=== PATIENT | male | born 1980 | race Caucasian/White ===

== ENCOUNTER 2019-04-27 07:45 | Emergency (ER) | payer OTHER ==
[2019-04-27 07:57] VITALS: BP 150/94
--- NOTE | 2019-04-27 11:17 | ER Document Report ---
HPI - HPI Time Seen by Provider: 04/27/19 10:46 Pain Level: 0 Notes: Patient is a 38-year-old male no significant past medical history who presents to discuss possible rabies vaccination series. Patient was bit by a dog minimally to his left index finger and right forearm this past Thursday. He was placed on Augmentin on Thursday. Patient states that his puncture wounds have been healing well and it was only very minor to begin with. He had been reviewing previous information and presents for discussion and possible vaccination series. Patient states that he was walking his small dog on [facility] when he saw a black lab mix walking in the distance. He picked up a small dog and served walking the other way. before he knew it, the dog was trying to attack his other dog. Patient states that the dog did have a collar and a leash. He did not notice any other abnormal behavior. He has not been able to find the systems programmer analyst or the dog since then and is not sure of its vaccination status. He has no other concerns or complaints. He does not have any pain or discomfort. Denies drug allergies. Tetanus is reported to up-to-date within the last 5 years. Denies any headache, fever, neck pain, URI, sore throat, chest pain, palpitations, syncope, cough, shortness of breath, wheeze, dyspnea, abdominal pain, nausea/vomiting/diarrhea, urinary retention, dysuria, hematuria, loss of control of bowel or bladder, numbness/tingling, muscle paralysis/weakness, or rash. - ROS Systems Reviewed and Negative: Yes All other systems reviewed and negative - CONSTITUTIONAL Constitutional: DENIES: Fever, Chills - EENT EENT: DENIES: Sore Throat, Ear Pain, Eye problems - NEURO Neurology: DENIES: Headache - CARDIOVASCULAR Cardiovascular: DENIES: Chest pain - RESPIRATORY Respiratory: DENIES: Trouble Breathing, Coughing - GASTROINTESTINAL Gastrointestinal: DENIES: Abdominal Pain, Black / Bloody Stools - URINARY Urinary: DENIES: Dysuria, Urgency, Frequency - REPRODUCTIVE Reproductive: DENIES: : - MUSCULOSKELETAL Musculoskeletal: DENIES: Extremity pain Past Medical History - Social History Smoking Status: Never Smoker Chew tobacco use (# tins/day): No Frequency of alcohol use: Occasional Drug Abuse: None Family History: Reviewed & Not Pertinent Patient has suicidal ideation: No Patient has homicidal ideation: No Vertical Provider Document - CONSTITUTIONAL Agree With Documented VS: Yes Notes: PHYSICAL EXAMINATION: GENERAL: Well-appearing, well-nourished and in no acute distress. HEAD: Atraumatic, normocephalic. EYES: Pupils equal round and reactive to light, extraocular movements intact, sclera anicteric, conjunctiva are normal. ENT: Nares patent and without discharge. oropharynx clear without exudates. No tonsilar hypertrophy or erythema. Moist mucous membranes. NECK: Normal range of motion, supple without lymphadenopathy LUNGS: Breath sounds clear to auscultation bilaterally and equal. No wheezes rales or rhonchi. HEART: Regular rate and rhythm without murmurs, rubs, gallops. Musculoskeletal: Upper extremities b/l: FROM to passive/active. Strength 5+/5. N/V intact distal. there is a small scab noted to the left index finger and rt forearm from a puncture wound w/o any erythema, ecchymosis, purulence, or streaks. Extremities: No cyanosis, clubbing, or edema b/l. Peripheral pulses 2+. Capillary refill less than 3 seconds. NEUROLOGICAL: Normal speech, normal gait. Normal sensory, motor exams PSYCH: Normal mood, normal affect. SKIN: see above. - INFECTION CONTROL TRAVEL OUTSIDE OF THE [place] IN LAST 30 DAYS: No Course - Re-evaluation Re-evalutation: 04/27/19 11:24 Patient is an afebrile, well-hydrated, 38-year-old male who presents to the ED for rabies discussion s/p dog bite this past thursday. Vitals are acceptable without any significant tachycardia, tachypnea, or hypoxia. PE is otherwise unremarkable for any neurovascular compromise, obvious tendon/ligament rupture, obvious fracture/dislocation, septic joint. Pt is already on augmentin. He has no evidence of superimposed infection or gaping wound. Patient is nontoxic- appearing. No other labs or imaging warranted at this time based on H&P. I did thoroughly review the risks, benefits, estimated cost, statistics, and likeliho od of rabies/rabies vaccination with the patient. Patient does not have insurance and due to the estimated potential cost he is declining at this time. I did have our staff here try to pull up the most accurate information for the cost that it would be to the patient. Patient is aware of the risk and benefits of choosing not to vaccinate. He is going to continue trying to find the systems programmer analyst of the dog. Patient is aware that if he changes his mind for any reason he may return for the rabies vaccination. This is otherwise a provoked attack from a dog that appeared to have an systems programmer analyst with a lesion collar going after his dog. I did review with Dr. Marin who is in agreement with dispo and plan and does estimate a very low risk for rabies exposure. Conservative measures otherwise for symptoms. Recheck with your PCM in 3-5 days. Return to the ED with any worsening/concerning symptoms otherwise as reviewed in discharge. Patient is in agreement. If I find out a more specific range today by our current resources, I will call and let the patient know. #[phone] - Vital Signs Vital signs: Temp Pulse Resp BP Pulse Ox 97.9 F 73 18 150/94 H 100 04/27/19 07:54 04/27/19 07:54 04/27/19 07:54 04/27/19 07:54 04/27/19 07:54 Discharge - Discharge Clinical Impression: Dog bite Qualifiers: Encounter type: initial encounter Qualified Code(s): W54.0XXA - Bitten by dog, initial encounter Condition: Stable Disposition: HOME, SELF-CARE Instructions: Animal Bites ([facility]) Additional Instructions: Continue looking for the dog/systems programmer analyst. If you change your mind for any reason you may return for the rabies series anytime. Keep the skin clean Wash with soap and water Tylenol/ibuprofen if needed Triple antibiotic ointment daily Take medication as directed Monitor for any worsening symptoms Recheck with your PCM in 3-5 days Return to the ED with any worsening symptoms and/or development of fever, headache, chest pain, palpitations, syncope, shortness of breath, trouble breathing, abdominal pain, n/v/d, abscess, purulent discharge, red streaks, worsening swelling, or other worsening symptoms that are concerning to you. Forms: Elevated Blood Pressure [facility] - Follow up as needed
== END 2019-04-27 12:00 | disposition home or self-care (01) ==
LOC: ER 07:45
DX: S61.251D Open bite of left index finger without damage to nail, subsequent encounter (principal); S51.851D Open bite of right forearm, subsequent encounter; W54.0XXD Bitten by dog, subsequent encounter
CPT/HCPCS: 99283